=== PATIENT | female | born 1935 | race Two or more races ===

== ENCOUNTER 2022-11-07 12:52 | Inpatient (IN) | payer MEDICARE, OTHER ==
[~2022-11-07] VITALS: Ht 170.2 cm; Wt 59.0 kg
[2022-11-07 13:33] LABS: BASOPHILS # (AUTO) 0.1 K/uL (0.0-0.2); BASOPHILS % (AUTO) 0.7 % (0.0-2.0); EOSINOPHILS # (AUTO) 0.1 K/uL (0.0-0.7); EOSINOPHILS % (AUTO) 0.8 % (0.0-6.0); HEMATOCRIT 37 % (33-45); HEMOGLOBIN 12.6 g/dL (11.5-14.8); LYMPHOCYTES # (AUTO) 0.7 K/uL (0.8-4.8); LYMPHOCYTES % (AUTO) 7.6 % (20.0-44.0); MEAN CORPUSCULAR HEMOGLOBIN 32 PG (26.0-33.0); MEAN CORPUSCULAR HGB CONC 34 g/dl (31.0-36.0); MEAN CORPUSCULAR VOLUME 94 fL (82-100); MONOCYTES # (AUTO) 0.7 K/uL (0.1-1.30); MONOCYTES % (AUTO) 7.3 % (2.0-12.0); NEUTROPHILS # (AUTO) 8.2 K/uL (1.8-8.9); NEUTROPHILS % (AUTO) 83.6 % (43.0-81.0); PLATELET COUNT (AUTO) 181 K/uL (150-450); RED CELL DISTRIBUTION WIDTH 14.6 % (11.5-15.0); WHITE BLOOD COUNT (AUTO) 9.8 K/uL (4.3-11.0)
[2022-11-07 13:45] LABS: CALCIUM, SERUM 9.7 mg/dL (8.5-10.1); CARBON DIOXIDE 24 mmol/L (21-32); CHLORIDE 97 mmol/L (98-107); CREATININE 0.9 mg/dL (0.6-1.3); GLUCOSE 270 mg/dL (74-106); INR 1.28 (0.91-1.10); PARTIAL THROMBOPLASTIN TIME 31.2 SEC (24.3-34.3); POTASSIUM 4.4 mmol/L (3.5-5.1); PROTHROMBIN TIME 13.3 SECS (9.2-11.1); SODIUM SERUM 130 mmol/L (136-145); UREA NITROGEN, BLOOD 11 mg/dL (7-18)
[2022-11-07 13:50] LABS: ALANINE AMINOTRANSFERASE 21 U/L (12-78); ALBUMIN 2.7 g/dL (3.4-5.0); ALKALINE PHOSPHATASE 150 U/L (46-116); ASPARTATE AMINOTRANSFERASE 29 U/L (15-37); BILIRUBIN,DIRECT 0.6 mg/dL (0.0-0.2); BILIRUBIN,TOTAL 1.4 mg/dL (0.2-1.0); TOTAL PROTEIN, SERUM 7.8 g/dL (6.4-8.2)
[2022-11-07] MEDS ORDERED: MEMA5TAB42 PO (13:57)
[2022-11-07] MEDS ORDERED: METO50TA16 PO (13:57)
[2022-11-07] MEDS ORDERED: SPIR50TA5 PO (13:57)
[2022-11-07] MEDS ORDERED: LOSA25TA27 PO (13:57)
[2022-11-07] MEDS ORDERED: DONE5TAB34 PO (13:57)
[2022-11-07] MEDS ORDERED: APIX2.5T PO (13:57)
[2022-11-07] MEDS ORDERED: CYAN-51 PO (14:30)
[2022-11-07] MEDS ORDERED: METF-440 PO (14:30)
[2022-11-07] MEDS ORDERED: CHOL500052 PO (14:30)
[2022-11-07] MEDS ORDERED: Z GUARD REMEDY 4 OZ OINT TP PRN (15:30)
[2022-11-07] MEDS ORDERED: ONDANSETRON HCL/PF 4 MG/2 ML VIAL IVP PRN (15:30)
[2022-11-07] MEDS ORDERED: DEXTROSE 50%-WATER 50 ML DISP.SYRIN IV PRN (15:30)
[2022-11-07] MEDS ORDERED: MAG HYDROX/AL HYDROX/SIMETH 30 ML UDC PO PRN (15:30)
[2022-11-07] MEDS ORDERED: MAGNESIUM HYDROXIDE 30 ML UDC PO PRN (15:30)
[2022-11-07 16:10] VITALS: BP 156/86; O2SAT 99
[2022-11-07] MEDS ORDERED: APIXABAN 2.5 MG TABLET PO SCH (17:00)
[2022-11-07] MEDS: BLOOD SUGAR DIAGNOSTIC 1 EACH STRIP VI SCH ×2 (17:15→21:36)
[2022-11-07] MEDS: MEMANTINE HCL 5 MG TABLET PO SCH (17:32)
[2022-11-07] MEDS: METOPROLOL TARTRATE 50 MG TABLET PO SCH (17:33)
[2022-11-07] MEDS: INSULIN REGULAR, HUMAN 100 UNIT/ML 3 ML VIAL SQ PRN (17:40)
[2022-11-07 20:00] VITALS: BP 145/68; TEMP 98.1; O2SAT 98
[2022-11-07] MEDS: ACETAMINOPHEN 325 MG TABLET PO PRN (21:23)
[2022-11-07] MEDS: DONEPEZIL 5 MG TABLET PO SCH (21:23)
[2022-11-07] MEDS: IV NS 0.9% 1,000 ML IV PRN (21:24)
[2022-11-07] MEDS: *INSULIN REGULAR(HUMULIN R)HUM 100 UNIT/ML VIAL SQ PRN (21:39)
[2022-11-08] VITALS: BP 147/77; TEMP 97.8; O2SAT 97
[2022-11-08 04:00] VITALS: BP 144/78; TEMP 98; O2SAT 97
[2022-11-08 06:44] LABS: BASOPHILS % (AUTO) 0.4 % (0.0-2.0); EOSINOPHILS # (AUTO) 0.1 K/uL (0.0-0.7); EOSINOPHILS % (AUTO) 0.8 % (0.0-6.0); HEMATOCRIT 31 % (33-45); HEMOGLOBIN 10.5 g/dL (11.5-14.8); LYMPHOCYTES # (AUTO) 1.2 K/uL (0.8-4.8); LYMPHOCYTES % (AUTO) 12.3 % (20.0-44.0); MEAN CORPUSCULAR HEMOGLOBIN 33 PG (26.0-33.0); MEAN CORPUSCULAR HGB CONC 34 g/dl (31.0-36.0); MEAN CORPUSCULAR VOLUME 96 fL (82-100); MONOCYTES % (AUTO) 10.4 % (2.0-12.0); NEUTROPHILS # (AUTO) 7.6 K/uL (1.8-8.9); NEUTROPHILS % (AUTO) 76.1 % (43.0-81.0); PLATELET COUNT (AUTO) 134 K/uL (150-450); RED BLOOD CELL COUNT(AUTO) 3.18 MIL/uL (4.0-5.2); RED CELL DISTRIBUTION WIDTH 14.9 % (11.5-15.0); WHITE BLOOD COUNT (AUTO) 9.9 K/uL (4.3-11.0)
[2022-11-08] MEDS: INSULIN REGULAR, HUMAN 100 UNIT/ML 3 ML VIAL SQ PRN ×2 (06:52→18:14)
[2022-11-08] MEDS: BLOOD SUGAR DIAGNOSTIC 1 EACH STRIP VI SCH ×4 (06:52→21:30)
[2022-11-08 07:30] VITALS: BP 151/72; TEMP 97.7; O2SAT 97
[2022-11-08 07:48] LABS: CREATININE 0.7 mg/dL (0.6-1.3); MAGNESIUM 1.3 mg/dL (1.8-2.4); POTASSIUM 3.9 mmol/L (3.5-5.1)
[2022-11-08 08:00] VITALS: BP 139/69; TEMP 97.7; O2SAT 99
[2022-11-08 09:13] LABS: THYROID STIMULATING HORMONE 1.527 uIU/mL (0.358-3.74)
[2022-11-08] MEDS: LOSARTAN POTASSIUM 25 MG TABLET PO SCH (09:33)
[2022-11-08] MEDS: SPIRONOLACTONE 25 MG TABLET PO SCH (09:34)
[2022-11-08] MEDS: METOPROLOL TARTRATE 50 MG TABLET PO SCH ×2 (09:34→18:13)
[2022-11-08] MEDS: MEMANTINE HCL 5 MG TABLET PO SCH ×2 (09:34→18:12)
[2022-11-08] MEDS ORDERED: MAGNESIUM OXIDE 400 MG TABLET PO ONE ×2 (11:00→14:00)
[2022-11-08] MEDS: IV NS 0.9% 1,000 ML IV PRN (12:41)
[2022-11-08 16:00] VITALS: BP 139/69; TEMP 97.7; O2SAT 99
[2022-11-08] MEDS: DONEPEZIL 5 MG TABLET PO SCH (21:30)
[2022-11-08] MEDS: ACETAMINOPHEN 325 MG TABLET PO PRN (21:30)
[2022-11-08 21:35] VITALS: BP 149/73; TEMP 97.7; O2SAT 98
[2022-11-08] MEDS: *INSULIN REGULAR(HUMULIN R)HUM 100 UNIT/ML VIAL SQ PRN (21:48)
[2022-11-09 00:53] VITALS: BP 115/41; TEMP 97.5; O2SAT 96
[2022-11-09 04:00] VITALS: BP 134/104; TEMP 97.3; O2SAT 96
[2022-11-09] MEDS: IV NS 0.9% 1,000 ML IV PRN (04:29)
[2022-11-09 04:49] VITALS: BP 115/49; TEMP 97.5; O2SAT 98
[2022-11-09 06:40] LABS: BASOPHILS % (AUTO) 0.6 % (0.0-2.0); EOSINOPHILS # (AUTO) 0.1 K/uL (0.0-0.7); EOSINOPHILS % (AUTO) 1.4 % (0.0-6.0); HEMATOCRIT 30 % (33-45); HEMOGLOBIN 10.1 g/dL (11.5-14.8); LYMPHOCYTES # (AUTO) 0.7 K/uL (0.8-4.8); LYMPHOCYTES % (AUTO) 8.3 % (20.0-44.0); MEAN CORPUSCULAR HEMOGLOBIN 32 PG (26.0-33.0); MEAN CORPUSCULAR HGB CONC 34 g/dl (31.0-36.0); MEAN CORPUSCULAR VOLUME 95 fL (82-100); MONOCYTES # (AUTO) 0.9 K/uL (0.1-1.30); MONOCYTES % (AUTO) 10.3 % (2.0-12.0); NEUTROPHILS # (AUTO) 7.1 K/uL (1.8-8.9); NEUTROPHILS % (AUTO) 79.4 % (43.0-81.0); PLATELET COUNT (AUTO) 133 K/uL (150-450); RED BLOOD CELL COUNT(AUTO) 3.13 MIL/uL (4.0-5.2); RED CELL DISTRIBUTION WIDTH 14.8 % (11.5-15.0); WHITE BLOOD COUNT (AUTO) 8.9 K/uL (4.3-11.0)
[2022-11-09 06:58] LABS: ALANINE AMINOTRANSFERASE 14 U/L (12-78); ALBUMIN 2.3 g/dL (3.4-5.0); ALKALINE PHOSPHATASE 107 U/L (46-116); ASPARTATE AMINOTRANSFERASE 26 U/L (15-37); BILIRUBIN,TOTAL 1.3 mg/dL (0.2-1.0); CALCIUM, SERUM 8.6 mg/dL (8.5-10.1); CARBON DIOXIDE 23 mmol/L (21-32); CHLORIDE 105 mmol/L (98-107); CREATININE 0.5 mg/dL (0.6-1.3); GLUCOSE 149 mg/dL (74-106); MAGNESIUM 1.4 mg/dL (1.8-2.4); PHOSPHORUS 2.3 mg/dL (2.5-4.9); POTASSIUM 4.1 mmol/L (3.5-5.1); SODIUM SERUM 136 mmol/L (136-145); TOTAL PROTEIN, SERUM 6.6 g/dL (6.4-8.2); UREA NITROGEN, BLOOD 10 mg/dL (7-18)
[2022-11-09] MEDS: BLOOD SUGAR DIAGNOSTIC 1 EACH STRIP VI SCH ×4 (07:35→22:17)
[2022-11-09] MEDS: INSULIN REGULAR, HUMAN 100 UNIT/ML 3 ML VIAL SQ PRN ×2 (07:36→18:15)
[2022-11-09] MEDS ORDERED: FENTANYL PF 100MCG/2ML AMPUL ONE (07:47)
[2022-11-09] MEDS ORDERED: Magnesium 1 GM/2 ML VIAL ONE (07:47)
[2022-11-09] MEDS ORDERED: ROCURONIUM BROMIDE 50 MG/5 ML ONE (07:48)
[2022-11-09] MEDS ORDERED: TRANEXAMIC ACID 1,000 MG/10 ML VIAL ONE ×2 (07:48)
[2022-11-09] MEDS ORDERED: FAMOTIDINE/PF INJ 20 MG/2 ML VIAL IV ONE (07:48)
[2022-11-09] MEDS ORDERED: ALBUMIN 5% 250 ML IV ONE (07:53)
[2022-11-09] MEDS ORDERED: K PHOS NEUTRAL 250 MG TABLET PO ONE (08:00)
[2022-11-09] MEDS ORDERED: MAGNESIUM OXIDE 400 MG TABLET PO SCH (08:00)
[2022-11-09 08:28] LABS: INR 1.19 (0.91-1.10); PARTIAL THROMBOPLASTIN TIME 30.2 SEC (24.3-34.3); PROTHROMBIN TIME 12.4 SECS (9.2-11.1)
[2022-11-09] MEDS ORDERED: BUPIVACAINE 0.25% 75 MG/30 ML VIAL ONE (08:40)
[2022-11-09] MEDS: SPIRONOLACTONE 25 MG TABLET PO SCH (09:00)
[2022-11-09] MEDS: MEMANTINE HCL 5 MG TABLET PO SCH ×2 (09:00→18:22)
[2022-11-09] MEDS: METOPROLOL TARTRATE 50 MG TABLET PO SCH ×2 (09:00→18:22)
[2022-11-09] MEDS: LOSARTAN POTASSIUM 25 MG TABLET PO SCH (09:00)
[2022-11-09] MEDS ORDERED: TRIAMCINOLONE ACETONIDE SUSP 40 MG/ML 1 ML ONE (09:35)
[2022-11-09] MEDS ORDERED: LIDOCAINE HCL/MPF 1% 30 ML VIAL IJ ONE (09:35)
[2022-11-09 10:47] LABS: HEMOGLOBIN 9.9 g/dL (11.5-14.8)
[2022-11-09] MEDS: Magnesium 1GM/D5W 100ML PREMIX 100 ML IV SCH ×2 (11:17→13:07)
[2022-11-09] MEDS ORDERED: ACETAMINOPHEN 325 MG TABLET PO PRN (11:30)
[2022-11-09] MEDS ORDERED: DOCUSATE SODIUM 250 MG CAPSULE PO PRN (11:30)
[2022-11-09] MEDS ORDERED: DOCUSATE SODIUM 100 MG CAPSULE PO PRN (11:30)
[2022-11-09] MEDS ORDERED: BISACODYL SUPP (10 MG) 10 MG/SUPP.RECT SUPP.RECT RC PRN (11:30)
[2022-11-09] MEDS ORDERED: SENNOSIDES 8.6 MG TABLET PO PRN ×2 (11:30)
[2022-11-09] MEDS ORDERED: HYDROCODONE/APAP 5/325MG TABLET PO PRN ×2 (13:30)
[2022-11-09] MEDS: MORPHINE SULFATE INJ 4 MG/ML DISP.SYRIN IV PRN (13:49)
[2022-11-09] MEDS: NEUTRA PHOS 1 POWD.PACKET PO SCH ×4 (15:27→18:35)
[2022-11-09 16:00] VITALS: BP 132/104; TEMP 97.3; O2SAT 96
[2022-11-09] MEDS: ANCEF 1 GM/50 ML D5W IV SCH ×2 (18:20)
[2022-11-09 20:00] VITALS: BP 144/68; TEMP 97.8; O2SAT 100
[2022-11-09] MEDS ORDERED: ENOXAPARIN SODIUM 40 MG/0.4 ML DISP.SYRIN SQ SCH (21:00)
[2022-11-09] MEDS: DONEPEZIL 5 MG TABLET PO SCH (21:32)
[2022-11-09] MEDS: *INSULIN REGULAR(HUMULIN R)HUM 100 UNIT/ML VIAL SQ PRN (22:46)
[2022-11-10] MEDS: ANCEF 1 GM/50 ML D5W IV SCH ×2 (00:52)
[2022-11-10] MEDS: IV NS 0.9% 1,000 ML IV PRN (00:58)
[2022-11-10 06:50] LABS: CALCIUM, SERUM 8.9 mg/dL (8.5-10.1); CREATININE 0.7 mg/dL (0.6-1.3); MAGNESIUM 2.2 mg/dL (1.8-2.4); PHOSPHORUS 2.3 mg/dL (2.5-4.9); POTASSIUM 4.2 mmol/L (3.5-5.1)
[2022-11-10] MEDS: BLOOD SUGAR DIAGNOSTIC 1 EACH STRIP VI SCH ×3 (06:51→17:30)
[2022-11-10] MEDS: INSULIN REGULAR, HUMAN 100 UNIT/ML 3 ML VIAL SQ PRN ×2 (07:02→12:27)
[2022-11-10] MEDS: SPIRONOLACTONE 25 MG TABLET PO SCH (08:42)
[2022-11-10] MEDS: METOPROLOL TARTRATE 50 MG TABLET PO SCH ×2 (08:42→17:43)
[2022-11-10] MEDS: LOSARTAN POTASSIUM 25 MG TABLET PO SCH (08:42)
[2022-11-10] MEDS: MEMANTINE HCL 5 MG TABLET PO SCH ×2 (08:43→17:41)
[2022-11-10] MEDS ORDERED: RIVA10TA PO (11:31)
[2022-11-10] MEDS: NEUTRA PHOS 1 POWD.PACKET PO SCH ×2 (11:51→17:41)
[2022-11-10] MEDS: MORPHINE SULFATE INJ 4 MG/ML DISP.SYRIN IV PRN (14:19)
[2022-11-10 17:43] VITALS: BP 144/72
[2022-11-12 07:07] LABS: *SPE A/G RATIO 0.6 (0.7-1.7); *SPE ALBUMIN 2.5 g/dL (2.9-4.4); *SPE ALPHA-1-GLOBULIN 0.3 g/dL (0.0-0.4); *SPE ALPHA-2-GLOBULIN 0.5 g/dL (0.4-1.0); *SPE BETA GLOBULIN 1.4 g/dL (0.7-1.3); *SPE M-SPIKE Not Observed g/dL (Not Observed); *SPE PROTEIN TOTAL 6.5 g/dL (6.0-8.5); *SPEGAMMA GLOBULIN 1.8 g/dL (0.4-1.8)
== END 2022-11-10 18:02 | DRG 981 ==
LOC: ER 13:31 → TELE 14:59 → MED 11-09 12:08
PROVIDERS: ADMIT Internal Medicine; ATTEND Nurse Practitioner Acute Care
PROC: 0QS606Z Reposition Right Upper Femur with Intramedullary Internal Fixation Device, Open Approach (ICD-10-PCS; principal; 2022-11-09)
DX: G90.8 Other disorders of autonomic nervous system (principal); E43 Unspecified severe protein-calorie malnutrition; S72.141A Displaced intertrochanteric fracture of right femur, initial encounter for closed fracture; E87.1 Hypo-osmolality and hyponatremia; D68.59 Other primary thrombophilia; W19.XXXA Unspecified fall, initial encounter; Y92.009 Unspecified place in unspecified non-institutional (private) residence as the place of occurrence of the external cause; F03.90 Unspecified dementia, unspecified severity, without behavioral disturbance, psychotic disturbance, mood disturbance, and anxiety; I10 Essential (primary) hypertension; Z95.0 Presence of cardiac pacemaker; Z88.5 Allergy status to narcotic agent; Z79.01 Long term (current) use of anticoagulants; Z79.899 Other long term (current) drug therapy; I48.0 Paroxysmal atrial fibrillation; E86.1 Hypovolemia; E88.09 Other disorders of plasma-protein metabolism, not elsewhere classified; E11.9 Type 2 diabetes mellitus without complications
CPT/HCPCS: 36415; 70450-TC; 71045-TC; 73501; 73502; 73552; 73700-TC; 80048-TC; 80053-TC; 80076-TC; 82728-TC; 82962-TC; 83540-TC; 83735-TC; 84100-TC; 84155; 84165; 84439-TC; 84443-TC; 84484-TC; 85025-TC; 85027-TC; 85610-TC; 85730-TC; 86850-TC; 93307-TC; 97116-TC; 97530-TC; A4223; G0378; J0690; J1100; J1650; J1815; J2270; J2405; J2704; J2765; J3010; J3475; J3490; J7030; J7060; P9045